=== PATIENT | female | born 1955 | race Two or more races ===

== ENCOUNTER 2019-09-21 16:53 | Emergency (ER) | payer SELFPAY ==
[~2019-09-21] VITALS: Ht 170.2 cm; Wt 74.8 kg
[2019-09-21 16:59] VITALS: BP 182/92
--- NOTE | 2019-09-21 17:20 | NUR ---
Patient discharged to home in stable condition. Written and verbal after care instructions given. Patient verbalizes understanding of instruction. Pt ambulatory with a steady gait
== END 2019-09-21 17:21 | disposition home or self-care (01) ==
LOC: ER 16:53
DX: M71.22 Synovial cyst of popliteal space [Baker], left knee (principal); I10 Essential (primary) hypertension; F31.9 Bipolar disorder, unspecified; Z60.2 Problems related to living alone